=== PATIENT | female | born 1945 | race Caucasian/White ===

== ENCOUNTER → 2024-02-28 10:17 | Outpatient (REF) | payer MEDICARE, OTHER, SELFPAY ==
[2024-02-28 13:24] LABS: % Basophils 0.4 % (0-2); % Eosinophils 4.2 % (0-6); % Immature Granulocytes 0.2 % (0-0.5); % Lymphocytes 30.3 % (20.5-51.1); % Monocytes 10.5 % (1.7-9.3); % Neutrophils 54.4 % (42.2-75.2); Absolute Eosinophils 0.2 10^3/uL (0-0.7); Absolute Lymphocytes 1.6 10^3/uL (1.2-3.4); Absolute Monocytes 0.6 10^3/uL (0.1-0.6); Absolute Neutrophils 2.8 10^3/uL (1.4-6.5); Hematocrit 42.7 % (37.0-47.0); Hemoglobin 14.7 g/dL (12.0-16.0); Mean Corp Hgb Conc. 34.4 g/dL (33.0-37.0); Mean Corpuscular Hgb 32.5 pg (27.0-31.0); Mean Corpuscular Volume 94.5 fL (81.0-99.0); Mean Platelet Volume 9.7 fL (7.4-10.4); Nucleated Red Blood Cells % 0 %; Platelet Count 265 10^3/uL (130-400); Red Blood Cell Count 4.52 10^6/uL (4.20-5.40); Red Cell Dist. Width 12.4 % (11.5-14.5); White Blood Cell Count 5.2 10^3/uL (4.8-10.8)
[2024-02-28 13:41] LABS: ALT (SGPT) 24 U/L (0-35); AST (SGOT) 32 U/L (14-36); Alkaline Phosphatase 111 U/L (38-126); Blood Urea Nitrogen 21 mg/dl (7-17); Calcium 9.5 mg/dl (8.4-10.2); Carbon Dioxide 29 mmol/L (22-30); Chloride 102 mmol/L (98-107); Glucose 81 mg/dl (70-99); Potassium 4.2 mmol/L (3.5-5.1); Sodium 137 mmol/L (135-145); Total Bilirubin 0.7 mg/dl (0.2-1.3); Total Protein 6.5 g/dl (6.3-8.2); Uric Acid 4.2 mg/dl (2.5-6.2); eGFR > 60.00
[2024-02-28 13:56] LABS: C-Reactive Protein < 5.00 mg/L (0.0-10.00)
[2024-02-28 14:20] LABS: Vitamin D, 25-OH*** 43.8 ng/mL (30-80)
== END ==
LOC: RAD 10:17
PROVIDERS: ATTENDING PHYSICIAN Physician Assistant; FAMILY PHYSICIAN Family Medicine
DX: M81.0 Age-related osteoporosis without current pathological fracture (principal); E55.9 Vitamin D deficiency, unspecified; M19.041 Primary osteoarthritis, right hand; Z51.81 Encounter for therapeutic drug level monitoring
CPT/HCPCS: 36415; 77080; 80053; 82306; 84550; 85025; 86140

== ENCOUNTER → 2024-03-10 13:51 | Outpatient (REF) | payer MEDICARE, OTHER, SELFPAY ==
[2024-03-10 14:13] VITALS: BMI 27.5
== END ==
LOC: SDSPAT 13:51
PROVIDERS: ATTENDING PHYSICIAN Obstetrics & Gynecology; FAMILY PHYSICIAN Family Medicine
DX: N81.3 Complete uterovaginal prolapse (principal); N39.3 Stress incontinence (female) (male)
CPT/HCPCS: 36415; 86850; 86900; 86901; 93005

== ENCOUNTER 2024-03-17 06:10 | Day surgery (SDC) | payer MEDICARE, OTHER, SELFPAY ==
[2024-03-17] VITALS (20 sets, daily range): BP systolic 105–141; BP diastolic 45–73
[2024-03-17] MEDS: HEPARIN 5000 UNITS SC (06:50)
[2024-03-17] MEDS: Pyridium 200 MG PO (06:50)
[2024-03-17] MEDS: NORMOSOL-R 1000 IV ×3 (06:56→22:25)
--- NOTE | 2024-03-17 13:10 | PTCARENOTE ---
Addendum...Assumed care of patient from Oralia RN from [phone]. Transferred to [facility] at 1300.
--- NOTE | 2024-03-17 15:04 | OR.RPT ---
Operative Report
Operative Report
PREOPERATIVE DIAGNOSIS:
1. Pelvic organ prolapse Stage 4
2. Stress urinary incontinence
POSTOPERATIVE DIAGNOSIS:
1. Pelvic organ prolapse Stage 4
2. Stress urinary incontinence
PROCEDURE:
1. Robotic assisted total laparoscopic hysterectomy and bilateral salpingo-oophrectomy
2. Colpectomy with colpocleisis
3. Retropubic midurethral sling
4. Posterior colporrhaphy with perineoplasty
5. Cystoscopy
ASSISTANTS: Anabell Fowler PA-C
The assistance of Anabell Fowler was required due to the complexity of the procedure. During the procedure Anabell Fowler assisted with retraction, resection, and closure of the wound.
EBL: 100cc
COMPLICATIONS: None
SPECIMENS: Uterus, cervix, bilateral ovaries and tubes
INDICATIONS: Patient has symptomatic pelvic organ prolapse and urinary incontinence. Options were reviewed with the patient, who decided to proceed with surgery.� Preoperative urodynamics revealed stress urinary incontinence with urethral
hypermobility.� The risks of surgery were reviewed, including the risk of bleeding, infection, damage to surrounding organs including bowel, bladder, ureter, urethra, nerves, blood vessels, mesh complications, post-operative urinary retention and
urinary incontinence. The risk of anesthesia was also reviewed.� The patient expressed understanding and informed consent was obtained.
FINDINGS: Laparoscopic findings include adnexa were within normal limits bilaterally. Cystoscopic findings include normal bladder mucosa, no cystotomy, suture, lacerations or lesions.� Normal efflux of urine from bilateral ureteral openings. Normal
urethra.
DESCRIPTION OF PROCEDURE:
On day of surgery, patient properly identified in preoperative waiting area and informed consent of planned procedure again reviewed.� She was then taken to the operating room.� Sequential compression devices were placed on bilateral lower
extremities and 5,000 units of subcutaneous heparin were given for DVT prophylaxis.� General anesthesia was induced without difficulty.�� Ancef 2 grams and Flagyl 500 mg was given for antibiotic prophylaxis.� The patient was placed in dorsal
lithotomy position with William stirrups and prepped and draped in the usual sterile fashion.� Surgical time-out was performed to review patient and procedure.
Attention was turned to the patient�s vagina.� Lopez catheter was placed to gravity. The uterine manipulator was placed.� The anterior lip of the cervix was grasped with a tenaculum, placed on gentle traction, and uterus sounded.�� The Salon Supervisor
uterine manipulator was adjusted to the measurement taken by the sound and placed through the internal cervical os into the uterus.� The balloon was filled with 4 cc of air.�
Attention turned to the patient�s abdomen.� The patient was confirmed to have an OG tube in place on suction for gastric decompression.� A midline 8 mm transverse midline supraumbilical incision was made with the scalpel approximately 20 cm above
the symphysis.� The Veress needle was passed through this incision while tenting up the abdominal wall.� Intraperitoneal placement was confirmed by opening insufflation pressure of 0 mmHg.� The abdomen was insufflated to a pressure of 12 mmHg with
approximately 3L CO2 gas to obtain adequate pneumoperitoneum.� A 8 mm trocar was advanced through this incision and abdominal entry confirmed.� No injuries noted.� Next, the remaining port sites were marked, injected superficially with local
anesthetic, and skin incised with the scalpel.� These sites included two 8 mm robotic ports on the patient's left and one 8mm robotic and one 8 mm accessory port on the patient's right.� All ports were placed under direct visualization without
difficulty.� The patient was placed in [place] position and abdomen and pelvis inspected and noted to be free of significant adhesive disease.� The robot was docked using the left side-docking technique.� The robotic arms were attached to the
ports and instruments placed without difficulty.�
The robotic assisted laparoscopic total hysterectomy and bilateral salpingo-oophrectomy were performed as follows.� Starting at the patient�s left, the round ligament, uteroovarian pedicle, and fallopian tube were cauterized with bipolar cautery,
and then transected with monopolar scissors.� The anterior leaf of the broad ligament was opened, and the dissection was carried inferiorly and anterior around the cervix to create the bladder flap.� This process was repeated on the right in a
similar fashion.� The vesico-uterine peritoneum was further opened and the bladder dissected down off the anterior cervix and vagina with sharp and blunt dissection.� Returning to the left, the posterior leaf of the broad ligament was dissected
laterally down the side of the uterus.� The uterine arteries were skeletonized, cauterized, and transected.� Further sequential bites were taken down the side of the uterus to reach the level of the external cervical os.� This process was repeated
on the right.� The bladder was further dissected anteriorly off the vagina.�The colpotomy was made circumferentially around the ring of the manipulator. The uterus and cervix were removed through the vagina. The left IP ligament was identified and
isolated with the ureter noted well below the level of planned dissection.� The IP ligament was cauterized with bipolar electrocautery and transected with monopolar scissors.� The left tube and ovary were then dissected free in sequential bites and
removed thorugh the vaigna. The same procedure was done for the patient�s right tube and ovary.� The vagina was closed with #2-0 Vicryl figure of eight sutures. A second layer of #2-0 Stratafix was used to ensure adequate vaginal closure. Fran was
used in the pelvis. Hemostasis was maintained. The robot was undocked.�CO2 was released and ports removed under direct visualization.� Skin was closed with 4-0 Biosyn for the subcuticular layer.� All abdominal incisions were then closed with skin
glue.�
The colpectomy and enterocele repair was performed as follows:� A marking pen was used to demarcate the areas of the vaginal mucosa to be excised to completely remove all vaginal mucosa:� Anterior vaginal mucosa from the bladder neck to vaginal
cuff.� Posterior vaginal mucosa from the vaginal cuff to distally out to include a triangle of skin on the peritoneum. Starting posteriorly, the vaginal mucosa, perineum and skin were superficially injected with 1% lidocaine 1:100,000 epinephrine.
The scalpel was used to circumscribe the area of vaginal mucosa and skin to be excised. Triangular area of perineum skin was dissected free. Posterior vaginal mucosa was opened up in the midline going from the introitus up to the apical vaginal
cuff. Vaginal mucosa in the marked area was then dissected free from the underlying rectovaginal fascia and removed. Attention was then turned anteriorly. In a similar fashion, anterior vaginal mucosa was superficially injected with 1% lidocaine
1:100,000 epinephrine. The scalpel was used to circumscribe the area of vaginal mucosa to be dissected free. Metzenbaum scissors were used to undermine and dissect free this anterior vaginal mucosa from the underlying pubocervical fascia. The vagina
was noted to be free of all mucosa.� Starting at the vaginal apex, sequential purse-string stitches of #2-0 Vicryl were then placed to close off space and invert the vagina.� The procidentia was reduced and the vagina was completely obliterated.
The retropubic midurethral sling was performed as follows: Two Allis clamps were placed on the anterior vaginal mucosa at the level of the bladder neck and 1 cm from the urethral meatus. This area was infiltrated with 1% lidocaine with 1:100,000
epinephrine. A midline incision was made between the two Allis clamps using a scalpel. The vaginal mucosa was dissected from the underlying pubocervical fascia using Metzenbaum, out to the level of the inferior pubic rami bilaterally. The retropubic
sling trocars were brought onto the field. The right trocar was placed in the right vaginal dissection below the inferior pubic rami, passed behind and around the pubic symphysis, exiting the anterior abdominal wall 2 cm from the midline. This was
repeated on the left in a similar fashion. Lopez catheter was removed and Cystoscopy was performed. Findings were as above. The cystoscope was removed and Lopez catheter replaced.� The sling was attached to the ends of the trocars and pulled out
through the anterior abdominal wall incisions. The mesh was adjusted to allow a curved Diane between the urethra and the mesh material. The excess mesh was trimmed at the abdominal skin.� The abdominal incisions were closed with Dermabond. The
vaginal incision was closed with 2-0 Vicryl in a running continuous fashion.
The posterior repair and perineorrhaphy was performed as follows: The posterior vaginal mucosa and perineum skin were infiltrated with 1% lidocaine with 1:100,000 epinephrine. A triangular area of perineum skin was removed using a scalpel.� The
posterior vaginal mucosa was then opened up in the midline, going from the introitus toward the apex using Metzenbaum scissors.� The posterior vaginal mucosa was then dissected off the underlying rectovaginal fascia bilaterally out to the level of
the lateral sulci.� The apical edge of the rectovaginal fascia was identified and used plicate in the midline with interrupted stitches of #2-0 PDS.� Interrupted suture of #2-0 PDS were also used to plicate the transverse peritoneal and
bulbospongiosus muscles in the midline to reconstruct the perineal body.� Excess vaginal mucosa was trimmed.� The vaginal mucosa and perineum skin were reapproximated with 2-0 Vicryl in a running continuous fashion.� Rectal exam revealed no
stitches.� Vaginal packing was not placed.
Anesthesia was reversed without difficulty.� The patient tolerated the procedure well, was awakened and sent to the PACU in stable condition. All counts were correct x 2. I, Dr. Fletcher was scrubbed and present throughout the procedure
[2024-03-17] MEDS: TYLENOL 650 MG PO (15:10)
[2024-03-17] MEDS: TORADOL 15 MG IV ×2 (16:00→22:20)
--- NOTE | 2024-03-17 16:20 | PTCARENOTE ---
Report given to 2S regarding pt. Pt and her daughter updated on room number and plan of care. Pt transferred to bed in her room, tolerated well. Emptied 700ml clear yellow/orange urine prior to transfer.
--- NOTE | 2024-03-17 16:37 | PTCARENOTE ---
Pt arrived to 2S on stretcher, scooted to bed with assistance from NS staff. Full assessment completed. Abdominal lap sites C/D/I, glued and BRITTNEY. Marci pad with a moderate amount of drainage noted. Lopez catheter clean and intact draining yellow
urine. IVF infusing per order. Pt educated on ringing for assistance to get OOB, verbalized understanding. Bed locked and in the lowest position, safety maintained. Oriented to room and call eliazar, daughter at bedside.
[2024-03-17] MEDS: LOVENOX 40 MG SC (17:19)
[2024-03-17] MEDS: COLACE 100 MG PO (19:28)
[2024-03-17 19:32] LABS: Hematocrit 36.6 % (37.0-47.0); Hemoglobin 12.9 g/dL (12.0-16.0)
[2024-03-17] MEDS: SYMBICORT 160/4.5 MCG INHALER 2 PUFF INH (20:02)
[2024-03-18 03:12] VITALS: BP 95/47
[2024-03-18] MEDS: TORADOL 15 MG IV ×2 (04:49→10:11)
[2024-03-18] MEDS: NORMOSOL-R 1000 IV (06:34)
[2024-03-18 06:50] LABS: Hematocrit 32.6 % (37.0-47.0); Hemoglobin 11.4 g/dL (12.0-16.0); Mean Corpuscular Hgb 32.5 pg (27.0-31.0); Mean Corpuscular Volume 92.9 fL (81.0-99.0); Mean Platelet Volume 9.3 fL (7.4-10.4); Platelet Count 181 10^3/uL (130-400); Red Blood Cell Count 3.51 10^6/uL (4.20-5.40); Red Cell Dist. Width 12.9 % (11.5-14.5); White Blood Cell Count 7.2 10^3/uL (4.8-10.8)
[2024-03-18 07:27] LABS: Blood Urea Nitrogen 11 mg/dl (7-17); Carbon Dioxide 26 mmol/L (22-30); Chloride 107 mmol/L (98-107); Estimated Creatinine Clearance 61 ml/min; Sodium 136 mmol/L (135-145)
--- NOTE | 2024-03-18 07:30 | W.PN.GYN ---
Today's Communication / Plan
-
1. voiding trial
2. d/c home
Physician Note
-
Assessment and Plan:
78 yo woman POD 1 s/p robotic total hysterectomy, BSO, colpectomy with colpocleisis, posterior colporrhaphy with perineoplasty, retropubic midurethral sling and cystoscopy: doing well and meeting postoperative milestones.
1. Postoperative care
-hep lock iv
-regular diet
-dvt ppx: scds, ambulation, lovenox
-cbc: appropriate change in hemoglobin
-bmp: WNL
-uop: adequate
-voiding trial: pending
2. dipso
-d/c home today
Subjective:
no acute complaints. pain well controlled. tolerating diet. vaginal bleeding improved, minimal overnight.
Objective:
Intake and Output
03/16/24 03/17/24 03/18/24 03/19/24
06:59 06:59 06:59 06:59
Intake Total 850 / 850
Output Total 2500 / 2500
Balance -1650 / -1650
Intake:
Oral fluids 400 / 400
IV fluids (Total) 450 / 450
Normosol 200 / 200
Output:
Urine, Lopez 2500 / 2500
Vital Signs
Temp Pulse Resp BP Pulse Ox
97.4 F 70 20 95/47 95
03/18/24 03:12 03/18/24 03:12 03/18/24 03:12 03/18/24 03:12 03/18/24 03:12
Lab Results
03/18/24 06:31
03/18/24 06:31
Exam
: minimal bleeding on pad
Abdomen: soft, nontender, nondistended
Incisions: clean, dry, intact
[2024-03-18 07:50] VITALS: BP 103/55
[2024-03-18] MEDS: SYMBICORT 160/4.5 MCG INHALER 2 PUFF INH (07:52)
[2024-03-18] MEDS: COLACE 100 MG PO (08:04)
[2024-03-18 08:10] LABS: Hepatitis C Antibody Negative (Negative)
--- NOTE | 2024-03-18 09:36 | CM ---
IA complete. Seen at bedside.
Patient lives in a 2 story home with son & .
1 step to enter home, stairs to 2nd floor bed/bath. Powder room 1st floor.
Discharge today to home.
godinez removed this am - voiding trial pending.
Discussed role of CM. Discussed VN if failed void trial. Declined VN.
PCP: Dr. Tiffanie Najera
Pharmacy: [facility]
Plan: Discharge to home. No needs.
Daughter to transport home.
[2024-03-18] MEDS: LEXAPRO 10 MG PO (12:02)
[2024-03-18 12:08] VITALS: BP 109/42
== END 2024-03-18 13:09 | disposition home or self-care (01) ==
LOC: SDS 06:10
PROVIDERS: ATTENDING PHYSICIAN Obstetrics & Gynecology; FAMILY PHYSICIAN Family Medicine
DX: N81.3 Complete uterovaginal prolapse (principal); N39.3 Stress incontinence (female) (male); N84.0 Polyp of corpus uteri; D25.9 Leiomyoma of uterus, unspecified
CPT/HCPCS: 58571; 57265; 57288; 57120; 88305; 80051; 82565; 84520; 85014; 85018; 85027; 86803; 86900; 86901; 88341; 88342; 94640; C1771

== ENCOUNTER → 2024-07-18 11:33 | Outpatient (REF) | payer MEDICARE, OTHER, SELFPAY | LOC: WDC 11:33 | PROVIDERS: ATTENDING PHYSICIAN Family Medicine | DX: Z12.31 Encounter for screening mammogram for malignant neoplasm of breast (principal) | CPT/HCPCS: 77063; 77067 ==

== ENCOUNTER → 2024-07-29 12:13 | Outpatient (REF) | payer MEDICARE, OTHER, SELFPAY ==
[2024-07-29 13:27] LABS: % Basophils 0.6 % (0-2); % Eosinophils 4.5 % (0-6); % Immature Granulocytes 0.4 % (0-0.5); % Lymphocytes 28.9 % (20.5-51.1); % Monocytes 10.4 % (1.7-9.3); % Neutrophils 55.2 % (42.2-75.2); Absolute Eosinophils 0.2 10^3/uL (0-0.7); Absolute Lymphocytes 1.4 10^3/uL (1.2-3.4); Absolute Monocytes 0.5 10^3/uL (0.1-0.6); Absolute Neutrophils 2.7 10^3/uL (1.4-6.5); Hematocrit 43.5 % (37.0-47.0); Hemoglobin 14.4 g/dL (12.0-16.0); Mean Corp Hgb Conc. 33.1 g/dL (33.0-37.0); Mean Corpuscular Hgb 31.6 pg (27.0-31.0); Mean Corpuscular Volume 95.4 fL (81.0-99.0); Mean Platelet Volume 9.5 fL (7.4-10.4); Nucleated Red Blood Cells % 0 %; Platelet Count 230 10^3/uL (130-400); Red Blood Cell Count 4.56 10^6/uL (4.20-5.40); White Blood Cell Count 4.9 10^3/uL (4.8-10.8)
[2024-07-29 13:48] LABS: HDL Cholesterol 68 mg/dl; LDL Cholesterol, Calculated 139 mg/dl; Total Cholesterol 221 mg/dl (50-199); Triglyceride 72 mg/dl (10-149); Very Low Density Lipoprotein 14 mg/dl (0-30)
[2024-07-29 14:20] LABS: TSH Reflex To Free T4 0.58 uIU/ml (0.47-4.68)
== END ==
LOC: REG 12:13
PROVIDERS: ATTENDING PHYSICIAN Family Medicine
DX: E78.00 Pure hypercholesterolemia, unspecified (principal); D64.9 Anemia, unspecified
CPT/HCPCS: 36415; 80061; 84443; 85025